=== PATIENT | male | born 1975 | race Caucasian/White ===

== ENCOUNTER → 2018-09-26 | Day surgery (SDC) | payer OTHER ==
[~2018-09-26] MED LIST: IV RINGERS,LACTATED 1000ML 1,000 ML IV SCH; LIDOCAINE 1% PF 2 ML VIAL. ID PRN; LIDOCAINE 1% PF 2 ML VIAL. ONE; MIDAZOLAM HCL/PF 2 MG/2 ML VIAL. IV PRN; PROPOFOL 40 ML IV ONE; RANI150T21 PO; fentaNYL PF VIAL 100 MCG/2 ML VIAL IV PRN
[2018-09-26 09:17] VITALS: BP 117/76
--- NOTE | 2018-09-26 09:38 | HP ---
ADMIT DATE: 09/26/2018 REASON: Dysphagia, heartburn, change in bowel habits and atypical chest pain. HISTORY OF PRESENT ILLNESS: A 43-year-old male with past medical history significant for reflux, hyperlipidemia, seen for ongoing atypical chest pain. Previous imaging has been unrevealing for pathology. No zosters noted. No previous operations are encountered. No recent trauma. He does have food sticking in the substernal location with occasional heartburn. Upper endoscopy is recommended to further assess, in addition to the change in bowel habits with some infrequent bleeding. There is no family history of colon polyps, colon cancer, inflammatory bowel disease noted on previous colonoscopy. With the continued issues, he requests additional evaluation. PAST MEDICAL HISTORY: GERD, atypical chest pain. ALLERGIES: None. MEDICATIONS: Include Zantac 150 mg b.i.d. SOCIAL HISTORY: Nonsmoker, social drinker. PAST SURGICAL HISTORY: Noncontributory. REVIEW OF SYSTEMS: As per records. PHYSICAL EXAMINATION: GENERAL: Reveals a well-nourished, well-developed male. VITAL SIGNS: Temperature is 97.5, pulse 68, respiration rate 18. HEENT: Normocephalic, atraumatic. Pupils and extraocular movements are not tested. Sclerae anicteric. NECK: Supple. LUNGS: Clear. CARDIOVASCULAR: S1, S2 without S3, S4 or appreciable murmur. ABDOMEN: Epigastric and substernal tenderness to deep palpation. EXTREMITIES: Reveal no cyanosis, clubbing or edema. IMPRESSION: 1. Atypical chest pain with dysphagia and gastroesophageal reflux disease, etiology is to be determined. Upper endoscopy is recommended to further assess achalasia, malignancy, Adorno's, peptic ulcer disease, hiatal hernia in the differential. 2. Blood in stool, change in bowel habits. Differential includes hemorrhoids, polyps, cancers or inflammatory bowel disease. Risks, benefits were discussed with the patient including risk of hemorrhage and perforation for the procedure. He is willing to proceed. MATILDE BAUMANN MD DR: HO/radha JOB#: [id number] / [id number] ecc RECORDS, MEDICAL
--- NOTE | 2018-09-29 16:09 | PATHOLOGY ---
[facility] Accession Number: [id number] . 01 Material submitted: . PART A: DISTAL ESOPHOGEAL BIOPSY PART B: SIGMOID POLYP . 01 Clinical history: . Pre-OP DX: Reflux, screening, heme positive stool Post-OP DX: Rule out Adorno's, pending polyps . 02 Diagnosis: A. Esophageal biopsies, distal esophagus: - Segments of mildly hyperplastic squamous esophageal mucosa consistent with reflux esophagitis. . B. Colon biopsy, sigmoid polyp: - Tubular adenoma. . (JPM:donavon; 09/29/2018) MBR/09/29/2018 . 02 Comment: Sections of the distal esophageal biopsy reveal segments of mildly hyperplastic squamous esophageal mucosa. There is a rare intraepithelial eosinophil. The findings are consistent with reflux esophagitis. There is no evidence of Adorno's change, dysplasia or malignancy. . Sections of the sigmoid colon biopsy reveal a tubular adenoma showing no high-grade dysplasia or evidence of malignancy. . (JPM:donavon; 09/29/2018) . 02 Electronically signed: . Jono Manning MD, Pathologist NPI- [id number] . 01 Gross description: . A. Received in formalin labeled "Toni, Anthony, distal esophageal," are 3 segments of khan soft tissue measuring 1.0 x 0.4 x 0.2 cm in aggregate dimensions and ranging from 0.4 to 0.5 cm in maximum dimension. The specimen is submitted entirely in cassette A1. . B. Received in formalin labeled "Toni, Anthony, sigmoid polyp," is a single segment of khan soft tissue measuring 0.3 cm in maximum dimension. The specimen is entirely submitted in cassette B1. (TSD; 09/26/2018) TOB/TOB . 02 Pathologist provided ICD-10: K21.0, D12.5 . 02 CPT . 858161, 249270 Specimen Comment: A courtesy copy of this report has been sent to Specimen Comment: [phone], . Specimen Comment: Report sent to / DR BAILEY Performed at: [address] [facility], [place] [id number] MD Pablito Quiroz MD Phone: [phone] Performed at: [facility] [address], [place] [id number] MD Jono Manning MD Phone: [phone]
== END | disposition home or self-care (01) ==
LOC: SURG 07:01
PROVIDERS: ATTEND Internal Medicine Gastroenterology
DX: D12.5 Benign neoplasm of sigmoid colon (principal); K21.0 Gastro-esophageal reflux disease with esophagitis; K22.2 Esophageal obstruction; K64.0 First degree hemorrhoids; E78.5 Hyperlipidemia, unspecified; R07.89 Other chest pain; Z79.899 Other long term (current) drug therapy
CPT/HCPCS: 43239; 43450; 45385; 88305; J2704; 45380